=== PATIENT | female | born 1985 | race Caucasian/White ===

== ENCOUNTER 2020-05-07 11:50 | Inpatient (IN) | payer BC ==
[2020-05-07] MEDS: DEXTROSE 5%-LACTATED RINGERS 1,000 ML IV SCH (12:51)
[2020-05-07 12:57] LABS: BASO % 0.4 % (0-2.0); EOS % 0.7 % (0-4.5); HEMATOCRIT 34.4 % (32.4-45.2); HEMOGLOBIN 12.2 GM/dL (10.7-15.3); LYMPH % 19.6 % (8-40); MCHC 35.3 g/dl (32.0-36.0); MEAN CELL VOLUME 90.7 fl (80-96); MONO % 5.1 % (3.8-10.2); NEUT % 74.2 % (42.8-82.8); PLATELET COUNT 176 K/MM3 (134-434); RDW 13.1 % (11.6-15.6); WHITE BLOOD COUNT 7.9 K/mm3 (4.0-10.0)
[2020-05-07 13:09] LABS: INR 0.88 (0.83-1.09); PROTHROMBIN TIME (PATIENT) 10.9 SEC (9.7-13.0)
[2020-05-07 13:12] LABS: ACTIVATED PTT 27.7 SECONDS (25.2-36.5)
[2020-05-07 13:39] LABS: POTASSIUM 3.9 mmol/L (3.5-5.1)
[2020-05-07 13:42] LABS: BLOOD UREA NITROGEN 6.6 mg/dL (7-18); CALCIUM 8.9 mg/dL (8.5-10.1)
[2020-05-07 13:45] LABS: CREATININE 0.6 mg/dL (0.55-1.3)
[2020-05-07 14:10] VITALS: BMI 24.7
[2020-05-07 14:10] LABS: SYPHILIS W/ RPR CONF NON-REACTIVE (NONREACTIVE)
[2020-05-07 14:38] LABS: HIV INTERPRETATION NEGATIVE (NEGATIVE)
[2020-05-07] MEDS ORDERED: PROMETHAZINE HCL 25 MG/1 ML VIAL IVPUSH ONE (15:16)
[2020-05-07] MEDS ORDERED: BUTORPHANOL TARTRATE 2 MG/ML VIAL IVPUSH ONE (15:16)
[2020-05-07] MEDS ORDERED: OXYTOCIN 30 UNITS in 0.9% NS 30 UNIT/500 ML INFUS.BAG IVPB ONE ×2 (15:41→16:04)
[2020-05-07] MEDS: OXYTOCIN 30 UNITS in 0.9% NS 30 UNIT/500 ML INFUS.BAG IVPB SCH (16:10)
[2020-05-07] MEDS ORDERED: BUTORPHANOL TARTRATE 2 MG/ML VIAL ONE (23:25)
[2020-05-07] MEDS ORDERED: PROMETHAZINE HCL 25 MG/1 ML VIAL ONE (23:26)
[2020-05-08] MEDS ORDERED: AMPICILLIN SODIUM 2 GM VIAL ONE
[2020-05-08] MEDS ORDERED: AMPICILLIN - 2 GM in SODIUM CHLORIDE 100 ML IVPB ONE
[2020-05-08] MEDS: AMPICILLIN - 1 GM in SODIUM CHLORIDE 100 ML IVPB SCH ×3 (04:00→20:00)
[2020-05-08] MEDS ORDERED: AMPICILLIN SODIUM 1 GM VIAL ONE ×2 (04:41→07:55)
[2020-05-08] MEDS ORDERED: NALOXONE HCL 0.4 MG/ML VIAL IVPUSH PRN (05:05)
[2020-05-08] MEDS ORDERED: FENTANYL/BUPIVACAINE/NS/PF - PCEA - 50 ML DISP.SYRIN EP SCH (05:15)
[2020-05-08] MEDS ORDERED: FENTANYL/BUPIVACAINE/NS/PF - PCEA - 50 ML DISP.SYRIN EP ONE ×2 (05:23→09:15)
[2020-05-08] MEDS ORDERED: OXYTOCIN 20 UNITS in 0.9% NS 40 UNIT/2,000 ML INFUS.BAG IV ONE (10:20)
[2020-05-08] MEDS ORDERED: LIDOCAINE HCL 1% PRESERVATIVE FREE - 30ML VIAL ONE (10:24)
[2020-05-08] MEDS ORDERED: WITCH HAZEL 50% (TUCKS) 40 PAD/JAR PAD TP PRN (12:20)
[2020-05-08] MEDS ORDERED: BISACODYL 10 MG SUPP.RECT RC PRN (12:20)
[2020-05-08] MEDS ORDERED: METHYLERGONOVINE MALEATE 0.2 MG/1 ML AMP IM PRN (12:20)
[2020-05-08] MEDS ORDERED: BENZOCAINE 28 GM HEMORRHOIDAL OINTMENT TP PRN (12:20)
[2020-05-08] MEDS ORDERED: OXYTOCIN 20 UNITS in 0.9% NS 20 UNIT/1,000 ML INFUS.BAG IV SCH (12:30)
[2020-05-08] MEDS ORDERED: ACETAMINOPHEN 325 MG TABLET (FP) ONE (13:59)
[2020-05-08] MEDS ORDERED: IBUPROFEN 600 MG TABLET (FP) PO ONE (13:59)
[2020-05-08] MEDS: ACETAMINOPHEN 325 MG TABLET (FP) PO PRN ×2 (14:10→21:13)
[2020-05-08] MEDS: IBUPROFEN 600 MG TABLET (FP) PO PRN ×2 (14:11→21:12)
[2020-05-08] MEDS: BENZOCAINE 20% 57 GM BOTTLE TP PRN (14:12)
[2020-05-08] MEDS: DEXTROSE 5%-LACTATED RINGERS 1,000 ML IV SCH (20:00)
[2020-05-08] MEDS: OXYTOCIN 30 UNITS in 0.9% NS 30 UNIT/500 ML INFUS.BAG IVPB SCH (20:01)
[2020-05-08] MEDS: FERROUS SO4 325 MG TABLET (FP) PO SCH (21:13)
[2020-05-09 09:06] LABS: BASO % 0.2 % (0-2.0); EOS % 0.7 % (0-4.5); HEMATOCRIT 28.4 % (32.4-45.2); HEMOGLOBIN 10.1 GM/dL (10.7-15.3); LYMPH % 16.9 % (8-40); MCH 32.3 pg (25.7-33.7); MCHC 35.7 g/dl (32.0-36.0); MEAN CELL VOLUME 90.6 fl (80-96); MEAN PLT VOLUME 7.8 fl (7.5-11.1); MONO % 4.9 % (3.8-10.2); NEUT % 77.3 % (42.8-82.8); PLATELET COUNT 151 K/MM3 (134-434); RBC 3.14 M/mm3 (3.60-5.2); RDW 13.3 % (11.6-15.6); WHITE BLOOD COUNT 10.3 K/mm3 (4.0-10.0)
[2020-05-09] MEDS: FERROUS SO4 325 MG TABLET (FP) PO SCH ×2 (10:56→21:00)
[2020-05-09] MEDS: PRENATAL VITAMINS W/ FOLIC ACID TABLET (FP) PO SCH (10:57)
[2020-05-09] MEDS: ACETAMINOPHEN 325 MG TABLET (FP) PO PRN (21:00)
[2020-05-09] MEDS: IBUPROFEN 600 MG TABLET (FP) PO PRN (21:01)
[2020-05-09] MEDS ORDERED: SENNOSIDES/DOCUSATE COMBO (SENNA PLUS) TABLET (UD) PO PRN (22:00)
[2020-05-10] MEDS: FERROUS SO4 325 MG TABLET (FP) PO SCH (09:44)
[2020-05-10] MEDS: PRENATAL VITAMINS W/ FOLIC ACID TABLET (FP) PO SCH (09:44)
[2020-05-10] MEDS: BENZOCAINE 20% 57 GM BOTTLE TP PRN (11:18)
[2020-05-10] MEDS: IBUPROFEN 600 MG TABLET (FP) PO PRN (11:24)
[2020-05-10] MEDS: ACETAMINOPHEN 325 MG TABLET (FP) PO PRN (11:25)
[2020-05-10 15:25] VITALS: BP 120/82; PULSE 90; TEMP 97.8
== END 2020-05-10 15:15 | disposition home or self-care (01) | DRG 807 ==
LOC: JLDR 11:50 → J3W 05-08 14:00
PROVIDERS: ADMIT Obstetrics & Gynecology; ATTEND Obstetrics & Gynecology
PROC: 10E0XZZ Delivery of Products of Conception, External Approach (ICD-10-PCS; principal; 2020-05-08)
PROC: 10907ZC Drainage of Amniotic Fluid, Therapeutic from Products of Conception, Via Natural or Artificial Opening (ICD-10-PCS; 2020-05-08)
PROC: 0W8NXZZ Division of Female Perineum, External Approach (ICD-10-PCS; 2020-05-08)
DX: O42.02 Full-term premature rupture of membranes, onset of labor within 24 hours of rupture (principal); Z37.0 Single live birth; Z3A.39 39 weeks gestation of pregnancy
CPT/HCPCS: 36415; 59409; 80048; 85025; 85461; 85610; 85730; 86780; 86850; 86870; 86900; 86901; 86902; 86999; 87389; C9803; U0003

== ENCOUNTER 2023-07-25 20:53 | Emergency (ER) | payer BC ==
[2023-07-25 21:11] VITALS: BP 108/74; PULSE 85; RESP 18; TEMP 97.8; BMI 26.2
[2023-07-25] MEDS ORDERED: predniSONE 20 MG TABLET (UD) ONE (21:53)
[2023-07-25] MEDS ORDERED: KETOROLAC TROMETHAMINE 60 MG/2 ML VIAL ONE (21:53)
[2023-07-25] MEDS: predniSONE 20 MG TABLET (UD) PO ONE (21:57)
[2023-07-25] MEDS: KETOROLAC TROMETHAMINE 60 MG/2 ML VIAL IM ONE (21:57)
== END 2023-07-25 22:23 | disposition home or self-care (01) ==
LOC: FER 20:53
PROC: 3E0233Z Introduction of Anti-inflammatory into Muscle, Percutaneous Approach (ICD-10-PCS; principal; 2023-07-25)
DX: M54.12 Radiculopathy, cervical region (principal)
CPT/HCPCS: 99284-25